=== PATIENT | female | born 1985 | race Caucasian/White ===

== ENCOUNTER → 2019-08-09 | Outpatient (CLI) | payer BC, OTHER ==
[~2019-08-09] MED LIST: IBUP-1222 PO; NONE PER PT; OXYC-302 PO
[2019-08-09 11:45] LABS: CULTURE INDICATED? YES; MICROSCOPIC INDICATED
[2019-08-09 11:49] LABS: BASOPHILS # (AUTO) 0.02 x10^3/uL (0-0.1); BASOPHILS % (AUTO) 0 % (0-1); EOSINOPHILS # (AUTO) 0.03 x10^3/uL (0-0.4); EOSINOPHILS % (AUTO) 1 % (1-7); LYMPHOCYTES # (AUTO) 1.61 x10^3/uL (1-3.4); LYMPHOCYTES % (AUTO) 28 % (22-44); MD NO; MEAN CORPUSCULAR HEMOGLOBIN 28.7 pg (27.0-34.8); MEAN CORPUSCULAR HGB CONC 33.3 g/dL (32.4-35.8); MEAN CORPUSCULAR VOLUME 86.3 fL (80-100); MEAN PLATELET VOLUME 6.9 fL (7.4-10.4); MONOCYTES # (AUTO) 0.41 x10^3/uL (0.2-0.8); MONOCYTES % (AUTO) 7 % (2-9); NEUTROPHILS # (AUTO) 3.73 x10^3/uL (1.8-6.8); NEUTROPHILS % (AUTO) 64 % (42-75); PLATELET COUNT 334 x10^3/uL (130-400); RED BLOOD COUNT 4.97 x10^6/uL (3.82-5.3); RED CELL DISTRIBUTION WIDTH 13.5 % (9.6-15.2)
[2019-08-09 12:01] LABS: ALANINE AMINOTRANSFERASE 28 U/L (12-78); ANION GAP 5 mmol/L (5-15); CALCIUM 8.9 mg/dL (8.5-10.1); CHLORIDE 106 mmol/L (98-107); CREATININE 0.83 mg/dL (0.55-1.02)
[2019-08-09 12:06] LABS: ALKALINE PHOSPHATASE 61 U/L (45-117); BILIRUBIN,TOTAL 0.6 mg/dL (0.2-1.0); TOTAL PROTEIN 7.8 g/dL (6.4-8.2)
== END | disposition home or self-care (01) ==
LOC: STAR 10:43
PROVIDERS: ATTEND Obstetrics & Gynecology
DX: Z01.818 Encounter for other preprocedural examination (principal); R10.2 Pelvic and perineal pain; N93.8 Other specified abnormal uterine and vaginal bleeding; N84.0 Polyp of corpus uteri
CPT/HCPCS: 36415; 80053; 81001; 84702; 85025; 87086

== ENCOUNTER 2019-08-23 09:52 | Day surgery (SDC) | payer BC, OTHER ==
[~2019-08-23] VITALS: Ht 157.5 cm; Wt 74.5 kg
[2019-08-23 10:15] VITALS: BP 116/71
[2019-08-23] MEDS ORDERED: MIDAZOLAM 1 MG/ML, 2ML ONE (10:30)
[2019-08-23] MEDS ORDERED: LIDOCAINE-MPF 2% ,5ML ONE (10:30)
[2019-08-23] MEDS ORDERED: PROPOFOL 10 MG/ML, 20ML ONE (10:30)
[2019-08-23] MEDS ORDERED: DEXAMETHASONE 4 MG/ML, 1ML ONE ×2 (10:30)
[2019-08-23] MEDS ORDERED: ROCURONIUM 10MG/ML,5ML ONE (10:30)
[2019-08-23] MEDS ORDERED: FENTANYL PF 100 MCG/2ML ONE (10:30)
[2019-08-23] MEDS ORDERED: ONDANSETRON 2MG/ML, 2ML ONE (10:30)
[2019-08-23 10:42] LABS: HCG UR SG 1.025 (1.003-1.030)
[2019-08-23] MEDS ORDERED: LACTATED RINGERS 1,000 ML IV SCH (10:51)
[2019-08-23] MEDS ORDERED: BUPIVACAINE/PF 0.25% ONE (10:59)
[2019-08-23] MEDS ORDERED: EPINEPHRINE 1 MG/ML, 1ML ONE (10:59)
[2019-08-23] MEDS ORDERED: SILVER NITRATE STICK TP ONE (10:59)
[2019-08-23] MEDS ORDERED: SCOPOLAMINE PATCH, 1.5MG PATCH.TD72 TD ONE ×2 (11:07→11:30)
[2019-08-23] MEDS ORDERED: LORazepam 2 MG/ML, 1ML IVPush PRN (12:30)
[2019-08-23] MEDS ORDERED: FENTANYL PF 100 MCG/2ML IV PRN (12:30)
[2019-08-23] MEDS ORDERED: OXYcodone 5 MG/5 ML ORAL.SOL UDC PO PRN (12:30)
[2019-08-23] MEDS ORDERED: ALBUTEROL/IPRATROPIUM 2.5MG/0.5MG, 3 ML NPPB PRN (12:30)
[2019-08-23] MEDS ORDERED: MEPERIDINE/PF 25MG/ML,1ML IVPush PRN (12:30)
[2019-08-23] MEDS ORDERED: ACETAMINOPHEN 325 MG TABLET PO PRN (12:30)
[2019-08-23] MEDS ORDERED: HYDROmorphone 2 MG/ML, 1ML IVPush PRN (12:30)
[2019-08-23] MEDS ORDERED: ONDANSETRON 2MG/ML, 2ML IV PRN (12:30)
[2019-08-23] MEDS ORDERED: SUGAMMADEX 200 MG/2 ML IVPush ONE (12:36)
[2019-08-23] MEDS ORDERED: KETOROLAC 30 MG/1 ML ONE (17:16)
== END 2019-08-23 14:40 | disposition home or self-care (01) ==
LOC: OUT 09:52
PROVIDERS: ATTEND Obstetrics & Gynecology
DX: N93.8 Other specified abnormal uterine and vaginal bleeding (principal); N84.0 Polyp of corpus uteri; E78.5 Hyperlipidemia, unspecified; J45.909 Unspecified asthma, uncomplicated; G43.909 Migraine, unspecified, not intractable, without status migrainosus; Z79.899 Other long term (current) drug therapy; Z98.51 Tubal ligation status; Z98.890 Other specified postprocedural states
CPT/HCPCS: 36415; 58558; 81025; 86850; 86900; 88305; J0171; J1100; J1885; J2250; J2405; J2704; J3010; J3490; J7120

== ENCOUNTER → 2020-07-10 | Outpatient (CLI) | payer OTHER | END | disposition home or self-care (01) | LOC: LAB 17:26 | PROVIDERS: ATTEND Obstetrics & Gynecology Reproductive Endocrinology | DX: N91.2 Amenorrhea, unspecified (principal) | CPT/HCPCS: 36415; 82670; 84144 ==

== ENCOUNTER 2020-08-28 17:50 | Emergency (ER) | payer OTHER ==
[~2020-08-28] VITALS: Ht 157.5 cm; Wt 79.6 kg
--- NOTE | 2020-08-28 18:11 | NUR ---
TO ROOM FROM LOBBY. NAD.
[2020-08-28 18:31] LABS: BASOPHILS % (AUTO) 0 % (0-1); EOSINOPHILS % (AUTO) 2 % (1-7); LYMPHOCYTES % (AUTO) 28 % (22-44); MEAN CORPUSCULAR HEMOGLOBIN 28.8 pg (27.0-34.8); MEAN CORPUSCULAR HGB CONC 33.4 g/dL (32.4-35.8); MEAN PLATELET VOLUME 6.6 fL (7.4-10.4); MONOCYTES % (AUTO) 6 % (2-9); NEUTROPHILS % (AUTO) 65 % (42-75); PLATELET COUNT 353 x10^3/uL (130-400); RED CELL DISTRIBUTION WIDTH 13.2 % (9.6-15.2)
--- NOTE | 2020-08-28 18:32 | NUR ---
PT TO US
[2020-08-28 18:34] LABS: MD NO
[2020-08-28 18:44] LABS: ALBUMIN 3.5 g/dL (3.4-5.0); ANION GAP 7 mmol/L (5-15); CHLORIDE 105 mmol/L (98-107)
--- NOTE | 2020-08-28 18:50 | NUR ---
PT RETURNED FROM US
--- NOTE | 2020-08-28 18:53 | NUR ---
BEDSIDE REPORT TO [facility].
[2020-08-28 19:07] LABS: CREATININE 0.71 mg/dL (0.55-1.02)
[2020-08-28 19:08] VITALS: BP 114/72
[2020-08-28 19:10] LABS: MICROSCOPIC INDICATED
== END 2020-08-28 20:17 | disposition home or self-care (01) ==
LOC: ED 20:00
DX: O20.0 Threatened abortion (principal); O98.811 Other maternal infectious and parasitic diseases complicating pregnancy, first trimester; M54.5 Low back pain; Z3A.11 11 weeks gestation of pregnancy
CPT/HCPCS: 36415; 76801; 80048; 81001; 82040; 84702; 85025; 86901; 87086; 99284

== ENCOUNTER 2021-03-09 07:58 | Inpatient (IN) | payer OTHER ==
[~2021-03-09] VITALS: Ht 157.5 cm; Wt 87.0 kg
[~2021-03-09 07:58] MED LIST changes: -OXYC-302 PO; +OXYC1TAB14 PO
[2021-03-09] MEDS ORDERED: ASPI81TA59 PO (09:51)
[2021-03-09] MEDS ORDERED: PREN1TAB60 PO (09:51)
[2021-03-09] MEDS ORDERED: METOCLOPRAMIDE 5 MG/ML, 2ML IV ONE (10:00)
[2021-03-09] MEDS ORDERED: SODIUM CITRATE/CITRIC ACID 30 ML UDC PO ONE (10:00)
[2021-03-09] MEDS ORDERED: LACTATED RINGERS 1,000 ML IVBOLUS ONE ×2 (10:00→11:30)
[2021-03-09 10:13] LABS: BASOPHILS % (AUTO) 1 % (0-1); EOSINOPHILS % (AUTO) 0 % (1-7); LYMPHOCYTES % (AUTO) 20 % (22-44); MEAN CORPUSCULAR HEMOGLOBIN 27.2 pg (27.0-34.8); MEAN CORPUSCULAR HGB CONC 33.6 g/dL (32.4-35.8); MEAN PLATELET VOLUME 7.3 fL (7.4-10.4); MONOCYTES % (AUTO) 6 % (2-9); NEUTROPHILS % (AUTO) 73 % (42-75); PLATELET COUNT 238 x10^3/uL (130-400); RED CELL DISTRIBUTION WIDTH 16.4 % (9.6-15.2)
[2021-03-09] MEDS ORDERED: OXYTOCIN 30U/ 0.9% NaCL 500ML 500 ML ONE (10:57)
[2021-03-09] MEDS ORDERED: NEWBORN KIT ONE ×2 (10:57→10:59)
[2021-03-09] MEDS ORDERED: SODIUM CITRATE/CITRIC ACID 15 ML UDC ONE (10:57)
[2021-03-09] MEDS ORDERED: MEPERIDINE/PF 25MG/0.5ML IVPush PRN (11:00)
[2021-03-09] MEDS ORDERED: ACETAMINOPHEN 325 MG TABLET PO PRN ×2 (11:00→12:00)
[2021-03-09] MEDS ORDERED: FENTANYL PF 100 MCG/2ML IV PRN (11:00)
[2021-03-09] MEDS ORDERED: ONDANSETRON 2MG/ML, 2ML IVPush PRN (11:00)
[2021-03-09] MEDS ORDERED: OXYcodone 5 MG/5 ML ORAL.SOL UDC PO PRN (11:00)
[2021-03-09] MEDS ORDERED: morphine SULFATE 10 MG/ML, 1ML IVPush PRN (11:00)
[2021-03-09] MEDS ORDERED: EPHEDRINE 50 MG/ML, 1ML IVPush PRN (11:00)
[2021-03-09] MEDS ORDERED: FENTANYL PF 100 MCG/2ML ONE (11:57)
[2021-03-09] MEDS ORDERED: KETOROLAC 30 MG/1 ML IM SCH (12:00)
[2021-03-09] MEDS ORDERED: OXYcodone/APAP 5/325MG TABLET PO PRN (12:00)
[2021-03-09] MEDS ORDERED: DIPH,PERTUSS(ACELL),TET VAC/PF NC IM-VACC PRN (12:00)
[2021-03-09] MEDS: LACTATED RINGERS 1,000 ML IV SCH ×4 (12:00→22:00)
[2021-03-09] MEDS ORDERED: MORPHINE SULFATE 4 MG/ML, 1ML IVPush PRN (12:00)
[2021-03-09] MEDS ORDERED: SIMETHICONE 80 MG CHEW TAB PO PRN (12:00)
[2021-03-09] MEDS ORDERED: MISOPROSTOL 200 MCG TABLET PR PRN (12:00)
[2021-03-09] MEDS ORDERED: ONDANSETRON 2MG/ML, 2ML IV PRN (12:00)
[2021-03-09] MEDS ORDERED: morphine SULFATE 10 MG/ML, 1ML IM PRN (12:00)
[2021-03-09] MEDS ORDERED: EPHEDRINE 50 MG/ML, 1ML ONE (12:19)
[2021-03-09] MEDS ORDERED: CEFAZOLIN 1,000 MG ONE (12:19)
[2021-03-09] MEDS ORDERED: EPINEPHRINE 1 MG/ML, 1ML ONE (12:19)
[2021-03-09] MEDS ORDERED: OXYTOCIN 10 UNITS/ML, 1ML ONE (12:19)
[2021-03-09] MEDS: OXYTOCIN 30U/ 0.9% NaCL 500ML 500 ML IV SCH ×2 (13:47→22:00)
[2021-03-09] MEDS ORDERED: MISOPROSTOL 200 MCG TABLET PR ONE (15:00)
[2021-03-09 15:30] VITALS: BP 112/73
[2021-03-09] MEDS: OXYcodone/APAP 5/325MG TABLET PO PRN ×2 (18:29→22:39)
[2021-03-09 20:00] VITALS: BP 92/63
[2021-03-10] VITALS: BP 96/64
[2021-03-10] MEDS: KETOROLAC 30 MG/1 ML IVPush SCH ×4 (00:17→18:04)
[2021-03-10 04:00] VITALS: BP 96/64
[2021-03-10] MEDS: LACTATED RINGERS 1,000 ML IV SCH (04:00)
[2021-03-10] MEDS: OXYcodone/APAP 5/325MG TABLET PO PRN ×4 (04:09→18:05)
[2021-03-10 07:12] VITALS: BP 108/65
[2021-03-10] MEDS: DOCUSATE 100 MG CAPSULE PO PRN (09:00)
[2021-03-10] MEDS: PRENATAL VIT/IRON/FA 1 EACH TABLET PO SCH (09:00)
[2021-03-10 11:41] VITALS: BP 91/60
[2021-03-10 14:25] VITALS: BP 90/58
[2021-03-10 21:00] VITALS: BP 108/70
[2021-03-11] MEDS: DOCUSATE 100 MG CAPSULE PO PRN ×2 (00:14→07:41)
[2021-03-11] MEDS: OXYcodone/APAP 5/325MG TABLET PO PRN ×3 (00:14→10:35)
[2021-03-11 06:23] LABS: BASOPHILS % (AUTO) 0 % (0-1); EOSINOPHILS % (AUTO) 2 % (1-7); LYMPHOCYTES % (AUTO) 21 % (22-44); MEAN CORPUSCULAR HEMOGLOBIN 27.6 pg (27.0-34.8); MEAN CORPUSCULAR HGB CONC 33.3 g/dL (32.4-35.8); MEAN PLATELET VOLUME 7.1 fL (7.4-10.4); MONOCYTES % (AUTO) 7 % (2-9); NEUTROPHILS % (AUTO) 70 % (42-75); PLATELET COUNT 178 x10^3/uL (130-400); RED BLOOD COUNT 3.52 x10^6/uL (3.82-5.3); RED CELL DISTRIBUTION WIDTH 16.4 % (9.6-15.2)
[2021-03-11] MEDS ORDERED: IBUPROFEN 200 MG TABLET ONE (07:38)
[2021-03-11] MEDS: PRENATAL VIT/IRON/FA 1 EACH TABLET PO SCH (07:41)
[2021-03-11] MEDS ORDERED: IBUPROFEN 200 MG TABLET PO PRN (08:00)
[2021-03-11] MEDS ORDERED: IBUPROFEN 600 MG TABLET PO PRN (08:00)
[2021-03-11] MEDS ORDERED: IBUP-1222 PO (10:24)
[2021-03-11] MEDS ORDERED: DOCU-131 PO (10:24)
[2021-03-11] MEDS ORDERED: ACET650S21 PO (10:26)
[2021-03-11] MEDS ORDERED: FERR324T5 PO (10:27)
[2021-03-11] MEDS ORDERED: OXYC5CAP2 PO (10:28)
== END 2021-03-11 11:30 | disposition home or self-care (01) | DRG 788 ==
LOC: LDIP 09:38 → 2NW 13:00
PROVIDERS: ADMIT Obstetrics & Gynecology; ATTEND Obstetrics & Gynecology
PROC: 10D00Z1 Extraction of Products of Conception, Low, Open Approach (ICD-10-PCS; principal; 2021-03-09)
DX: O34.211 Maternal care for low transverse scar from previous cesarean delivery (principal); Z37.0 Single live birth; Z20.822 Contact with and (suspected) exposure to COVID-19; Z3A.39 39 weeks gestation of pregnancy; Z98.51 Tubal ligation status
CPT/HCPCS: 36415; 85025; 86592; 86850; 86900; 86923; 87635; G0378; J0171; J0690; J1885; J2405; J3010; J2590; J2765; J7120